=== PATIENT | female | born 1975 | race Caucasian/White ===

== ENCOUNTER 2018-03-09 12:29 | Emergency (ER) | payer BC ==
[2018-03-09] MEDS: IBUPROFEN 800 MG TAB PO (13:18)
[2018-03-09] MEDS: DEXAMETHASONE 10 MG/ML 1 ML INJ IM (13:18)
== END 2018-03-09 13:39 | disposition home or self-care (01) ==
LOC: FTE 12:29
DX: M54.10 Radiculopathy, site unspecified (principal)
CPT/HCPCS: 96372; 99284-25